=== PATIENT | female | born 1990 | race Caucasian/White ===

== ENCOUNTER 2016-06-26 14:08 | Emergency (ER) | payer OTHER | END 2016-06-26 14:45 | disposition left against medical advice (07) | LOC: ER1 14:08 | DX: Z53.21 Procedure and treatment not carried out due to patient leaving prior to being seen by health care provider (principal) ==

== ENCOUNTER → 2020-03-06 | Outpatient (CLI) | payer OTHER ==
[~2020-03-06] MED LIST: COLACE 100MG C100 MG PO; HYDROCODON-ACE1 EAC6 PO; IBUPROFEN600 MG PO; OMEPRAZOLE20 MG PO; VISTARIL 25 MG25 MG PO
[2020-03-06 12:45] LABS: HEMOGLOBIN 11.7 gm/dl (12.3-15.3); RED BLOOD COUNT 4.21 M/UL (4.00-5.10); WHITE BLOOD COUNT 9.9 K/UL (4.5-11.0)
== END ==
LOC: GENOP 11:44
PROVIDERS: Obstetrics & Gynecology
DX: Z53.8 Procedure and treatment not carried out for other reasons (principal)
CPT/HCPCS: 36415; 81001; 85025

== ENCOUNTER 2020-03-07 05:27 | Inpatient (IN) | payer OTHER ==
[~2020-03-07] VITALS: Ht 157.5 cm; Wt 102.5 kg
[2020-03-07] MEDS ORDERED: OMEPRAZOLE20 MG PO (06:13)
[2020-03-07] MEDS ORDERED: VISTARIL 25 MG25 MG PO (06:14)
[2020-03-07] MEDS ORDERED: IBUPROFEN600 MG PO (07:47)
[2020-03-07] MEDS ORDERED: COLACE 100MG C100 MG PO (07:47)
[2020-03-07] MEDS ORDERED: HYDROCODON-ACE1 EAC6 PO (07:47)
[2020-03-08 05:45] LABS: HEMOGLOBIN 10.3 gm/dl (12.3-15.3)
== END 2020-03-08 16:58 | disposition home or self-care (01) | DRG 788 ==
LOC: OB 05:27
PROVIDERS: ADMIT Obstetrics & Gynecology
PROC: 10D00Z1 Extraction of Products of Conception, Low, Open Approach (ICD-10-PCS; principal; 2020-03-07 07:35)
DX: O34.211 Maternal care for low transverse scar from previous cesarean delivery (principal); Z3A.39 39 weeks gestation of pregnancy; Z37.0 Single live birth
CPT/HCPCS: 36415; 81001; 82800; 85014; 85018; 85025; C9113; J0690; J1650; J2210; J2274; J2405; J2590; J3010; J7120